=== PATIENT | male | born 1985 | race Hispanic/Latino ===

== ENCOUNTER 2021-08-29 21:42 | Emergency (ER) | payer OTHER ==
[2021-08-29] MEDS ORDERED: ONDANSETRON 4 MG/2 ML INJ IV ONE (23:08)
[2021-08-29] MEDS ORDERED: SODIUM CHLORIDE 0.9% 1000 ML 1,000 ML IV ONE (23:08)
[2021-08-29] MEDS ORDERED: LORazepam 2 MG/ML VIAL IV ONE (23:08)
--- NOTE | 2021-08-29 23:18 | Emergency Department Report ---
ED Seizure HPI - General Chief Complaint: Altered Mental Status Stated Complaint: SEIZURE, OPID WITHDRAW Time Seen by Provider: 08/29/21 22:59 Source: EMS Mode of arrival: Stretcher Limitations: No Limitations - History of Present Illness Initial Comments: 35-year-old male with a past medical history of polysubstance abuse presents from nursing home in police custody after having a witnessed seizure. Patient states he has been incarcerated for last 4 days. He abuses heroin, fentanyl, methamphetamine, and Xanax. Patient uses quite a bit of Xanax daily but has not had any drugs in the last 4 days. He received Narcan 4 mg IM and Versed 5 mg IV prior to ED arrival. He is currently alert and oriented x3 and does denies any pain, history of seizures, or drug use since incarceration. He has noticed to be tremulous. He denies alcohol abuse. Patient is unclear about history of hypertension - Related Data Previous Rx's Medication Instructions Recorded Last Taken Type Nitrofurantoin [place]/M-Cryst 100 mg PO Q12HR #10 capsule 08/30/21 Unknown Rx [Macrobid CAP] Ondansetron [Zofran Odt] 4 mg PO Q8HR PRN #20 tab.rapdis 08/30/21 Unknown Rx Allergies Allergy/AdvReac Type Severity Reaction Status Date / Time No Known Allergies Allergy Unverified 08/29/21 22:15 ED Review of Systems ROS: Stated complaint: SEIZURE, OPID WITHDRAW Other details as noted in HPI Comment: All other systems reviewed and negative ED Past Medical Hx - Past Medical History Previous Medical History?: Yes Hx Hypertension: Yes Hx Psychiatric Treatment: Yes (Bipolar) - Surgical History Past Surgical History?: No - Social History Smoking Status: Unknown if ever smoked Substance Use Type: Methamphetamines, Other - Medications Home Medications: Home Medications Medication Instructions Recorded Confirmed Last Taken Type Nitrofurantoin [place]/M-Cryst 100 mg PO Q12HR #10 capsule 08/30/21 Unknown Rx [Macrobid CAP] Ondansetron [Zofran Odt] 4 mg PO Q8HR PRN #20 tab.rapdis 08/30/21 Unknown Rx ED Physical Exam - General Limitations: No Limitations - Other Other exam information: General: No acute distress Head: Atraumatic Eyes: normal appearance ENT: Moist mucous membranes, no tongue laceration Neck: Normal appearance, no midline tenderness Chest: Clear to auscultation bilaterally CV: Regular rate and rhythm Abdomen: Soft, normal bowel sounds, nontender, nondistended, no rebound or guarding Back: Normal inspection Extremity: Normal inspection, full range of motion Neuro: Alert O x 3, no facial asymmetry, speech clear, no gross motor sensory deficit, tremor noted Psych: Appropriate behavior Skin: Track bhatti to skin ED Course Vital Signs 08/29/21 08/29/21 08/29/21 21:52 22:21 22:24 Temperature 97.5 F L Pulse Rate 87 92 H Respiratory 16 Rate Blood Pressure 184/118 Blood Pressure [Right] O2 Sat by Pulse 98 99 Oximetry 08/29/21 08/29/21 08/30/21 22:49 23:50 00:47 Temperature Pulse Rate 74 98 H 88 Respiratory 16 16 16 Rate Blood Pressure Blood Pressure 170/106 198/117 180/121 [Right] O2 Sat by Pulse 98 97 94 Oximetry 08/30/21 08/30/21 08/30/21 01:01 01:31 02:02 Temperature Pulse Rate 73 77 Respiratory 16 16 Rate Blood Pressure Blood Pressure 144/121 174/87 156/88 [Right] O2 Sat by Pulse 98 98 Oximetry - Reevaluation(s) Reevaluation #1: 08/30/21 04:05 Charge nurse informed to call the nursing home to ensure patient can be admitted to the [facility] for active management of benzo withdrawal 08/30/21 04:49 Charge nurse Francisca spoke to nurse at the nursing home who states that patient will be closely monitored upon discharge - Consultations Consultation #1: 08/30/21 03:[address] Junior optical sales associate regarding mild renal insufficiency and UA findings. Outpatient follow-up recommended. Admission not required at this time due to mild renal insufficiency ED Medical Decision Making - Lab Data Result diagrams: 08/29/21 23:17 08/29/21 23:17 Lab Results 08/29/21 08/29/21 08/29/21 Range/Units 23:17 23:17 23:17 WBC 15.1 H (4.5-11.0) K/mm3 RBC 4.79 (3.65-5.03) M/mm3 Hgb 14.0 (11.8-15.2) gm/dl Hct 41.9 (35.5-45.6) % MCV 88 (84-94) fl MCH 29 (28-32) pg MCHC 33 (32-34) % RDW 13.2 (13.2-15.2) % Plt Count 289 (140-440) K/mm3 Add Manual Diff Complete Total Counted 100 Seg Neutrophils % Psychology Assistant Seg Neuts % (Manual) 82.0 H (40.0-70.0) % Band Neutrophils % 0 % Lymphocytes % (Manual) 12.0 L (13.4-35.0) % Reactive Lymphs % (Man) 0 % Monocytes % (Manual) 6.0 (0.0-7.3) % Eosinophils % (Manual) 0 (0.0-4.3) % Basophils % (Manual) 0 (0.0-1.8) % Metamyelocytes % 0 % Myelocytes % 0 % Promyelocytes % 0 % Blast Cells % 0 % Nucleated RBC % Not Reportable Seg Neutrophils # Man 12.4 H (1.8-7.7) K/mm3 Band Neutrophils # 0.0 K/mm3 Lymphocytes # (Manual) 1.8 (1.2-5.4) K/mm3 Abs React Lymphs (Man) 0.0 K/mm3 Monocytes # (Manual) 0.9 H (0.0-0.8) K/mm3 Eosinophils # (Manual) 0.0 (0.0-0.4) K/mm3 Basophils # (Manual) 0.0 (0.0-0.1) K/mm3 Metamyelocytes # 0.0 K/mm3 Myelocytes # 0.0 K/mm3 Promyelocytes # 0.0 K/mm3 Blast Cells # 0.0 K/mm3 WBC Morphology Not Reportable Hypersegmented Neuts Not Reportable Hyposegmented Neuts Not Reportable Hypogranular Neuts Not Reportable Smudge Cells Not Reportable Toxic Granulation Not Reportable Toxic Vacuolation Not Reportable Dohle Bodies Not Reportable Pelger-Huet Anomaly Not Reportable Nae Rods Not Reportable Platelet Estimate Not Reportable Clumped Platelets Not Reportable Plt Clumps, EDTA Not Reportable Large Platelets Not Reportable Giant Platelets Not Reportable Platelet Satelliting Not Reportable Plt Morphology Comment Not Reportable RBC Morphology Normal Dimorphic RBCs Not Reportable Polychromasia Not Reportable Hypochromasia Not Reportable Poikilocytosis Not Reportable Anisocytosis Not Reportable Microcytosis Not Reportable Macrocytosis Not Reportable Spherocytes Not Reportable Pappenheimer Bodies Not Reportable Sickle Cells Not Reportable Target Cells Not Reportable Tear Drop Cells Not Reportable Ovalocytes Not Reportable Helmet Cells Not Reportable [place] Bodies Not Reportable Cameron Rings Not Reportable Latrice Cells Not Reportable Bite Cells Not Reportable Crenated Cell Not Reportable Elliptocytes Not Reportable Acanthocytes (Spur) Not Reportable Rouleaux Not Reportable Hemoglobin C Crystals Not Reportable Schistocytes Not Reportable Malaria parasites Not Reportable Ezra Bodies Not Reportable Hem Pathologist Commnt No Sodium 138 (137-145) mmol/L Potassium 3.9 (3.6-5.0) mmol/L Chloride 97.7 L (98-107) mmol/L Carbon Dioxide 21 L (22-30) mmol/L Anion Gap 23 mmol/L BUN 34 H (9-20) mg/dL Creatinine 1.9 H (0.8-1.3) mg/dL Estimated GFR 41 ml/min BUN/Creatinine Ratio 18 % Glucose 103 H (75-100) mg/dL Calcium 10.3 H (8.4-10.2) mg/dL Magnesium 2.70 H (1.7-2.3) mg/dL Total Bilirubin 0.60 (0.1-1.2) mg/dL AST 22 (5-40) units/L ALT 9 (7-56) units/L Alkaline Phosphatase 90 (35-129) units/L Total Creatine Kinase (55-170) units/L Total Protein 8.5 H (6.3-8.2) g/dL Albumin 4.4 (3.9-5) g/dL Albumin/Globulin Ratio 1.1 % Urine Color (Yellow) Urine Turbidity (Clear) Urine pH (5.0-7.0) Ur Specific [place] (1.003-1.030) Urine Protein (Negative) mg/dL Urine Glucose (UA) (Negative) mg/dL Urine Ketones (Negative) mg/dL Urine Blood (Negative) Urine Nitrite (Negative) Urine Bilirubin (Negative) Urine Urobilinogen (<2.0) mg/dL Ur Leukocyte Esterase (Negative) Urine WBC (Auto) (0.0-6.0) /HPF Urine RBC (Auto) (0.0-6.0) /HPF U Epithel Cells (Auto) (0-13.0) /HPF Urine Mucus /HPF Salicylates (2.8-20.0) mg/dL Urine Opiates Screen Urine Methadone Screen Acetaminophen (10.0-30.0) ug/mL Ur Barbiturates Screen Ur Phencyclidine Scrn Ur Amphetamines Screen U Benzodiazepines Scrn Urine Cocaine Screen U Marijuana (THC) Screen Drugs of Abuse Note Plasma/Serum Alcohol < 0.01 (0-0.07) % 08/29/21 08/29/21 08/29/21 Range/Units 23:22 23:22 Unknown WBC (4.5-11.0) K/mm3 RBC (3.65-5.03) M/mm3 Hgb (11.8-15.2) gm/dl Hct (35.5-45.6) % MCV (84-94) fl MCH (28-32) pg MCHC (32-34) % RDW (13.2-15.2) % Plt Count (140-440) K/mm3 Add Manual Diff Total Counted Seg Neutrophils % Seg Neuts % (Manual) (40.0-70.0) % Band Neutrophils % % Lymphocytes % (Manual) (13.4-35.0) % Reactive Lymphs % (Man) % Monocytes % (Manual) (0.0-7.3) % Eosinophils % (Manual) (0.0-4.3) % Basophils % (Manual) (0.0-1.8) % Metamyelocytes % % Myelocytes % % Promyelocytes % % Blast Cells % % Nucleated RBC % Seg Neutrophils # Man (1.8-7.7) K/mm3 Band Neutrophils # K/mm3 Lymphocytes # (Manual) (1.2-5.4) K/mm3 Abs React Lymphs (Man) K/mm3 Monocytes # (Manual) (0.0-0.8) K/mm3 Eosinophils # (Manual) (0.0-0.4) K/mm3 Basophils # (Manual) (0.0-0.1) K/mm3 Metamyelocytes # K/mm3 Myelocytes # K/mm3 Promyelocytes # K/mm3 Blast Cells # K/mm3 WBC Morphology Hypersegmented Neuts Hyposegmented Neuts Hypogranular Neuts Smudge Cells Toxic Granulation Toxic Vacuolation Dohle Bodies Pelger-Huet Anomaly Nae Rods Platelet Estimate Clumped Platelets Plt Clumps, EDTA Large Platelets Giant Platelets Platelet Satelliting Plt Morphology Comment RBC Morphology Dimorphic RBCs Polychromasia Hypochromasia Poikilocytosis Anisocytosis Microcytosis Macrocytosis Spherocytes Pappenheimer Bodies Sickle Cells Target Cells Tear Drop Cells Ovalocytes Helmet Cells [place] Bodies Cameron Rings [place] Cells Bite Cells Crenated Cell Elliptocytes Acanthocytes (Spur) Rouleaux Hemoglobin C Crystals Schistocytes Malaria parasites Ezra Bodies Hem Pathologist Commnt Sodium (137-145) mmol/L Potassium (3.6-5.0) mmol/L Chloride (98-107) mmol/L Carbon Dioxide (22-30) mmol/L Anion Gap mmol/L BUN (9-20) mg/dL Creatinine (0.8-1.3) mg/dL Estimated GFR ml/min BUN/Creatinine Ratio % Glucose (75-100) mg/dL Calcium (8.4-10.2) mg/dL Magnesium (1.7-2.3) mg/dL Total Bilirubin (0.1-1.2) mg/dL AST (5-40) units/L ALT (7-56) units/L Alkaline Phosphatase (35-129) units/L Total Creatine Kinase 478 H (55-170) units/L Total Protein (6.3-8.2) g/dL Albumin (3.9-5) g/dL Albumin/Globulin Ratio % Urine Color (Yellow) Urine Turbidity (Clear) Urine pH (5.0-7.0) Ur Specific [place] (1.003-1.030) Urine Protein (Negative) mg/dL Urine Glucose (UA) (Negative) mg/dL Urine Ketones (Negative) mg/dL Urine Blood (Negative) Urine Nitrite (Negative) Urine Bilirubin (Negative) Urine Urobilinogen (<2.0) mg/dL Ur Leukocyte Esterase (Negative) Urine WBC (Auto) (0.0-6.0) /HPF Urine RBC (Auto) (0.0-6.0) /HPF U Epithel Cells (Auto) (0-13.0) /HPF Urine Mucus /HPF Salicylates < 0.3 L (2.8-20.0) mg/dL Urine Opiates Screen Urine Methadone Screen Acetaminophen 5.0 L (10.0-30.0) ug/mL Ur Barbiturates Screen Ur Phencyclidine Scrn Ur Amphetamines Screen U Benzodiazepines Scrn Urine Cocaine Screen U Marijuana (THC) Screen Drugs of Abuse Note Plasma/Serum Alcohol (0-0.07) % 08/30/21 08/30/21 Range/Units 02:15 02:15 WBC (4.5-11.0) K/mm3 RBC (3.65-5.03) M/mm3 Hgb (11.8-15.2) gm/dl Hct (35.5-45.6) % MCV (84-94) fl MCH (28-32) pg MCHC (32-34) % RDW (13.2-15.2) % Plt Count (140-440) K/mm3 Add Manual Diff Total Counted Seg Neutrophils % Seg Neuts % (Manual) (40.0-70.0) % Band Neutrophils % % Lymphocytes % (Manual) (13.4-35.0) % Reactive Lymphs % (Man) % Monocytes % (Manual) (0.0-7.3) % Eosinophils % (Manual) (0.0-4.3) % Basophils % (Manual) (0.0-1.8) % Metamyelocytes % % Myelocytes % % Promyelocytes % % Blast Cells % % Nucleated RBC % Seg Neutrophils # Man (1.8-7.7) K/mm3 Band Neutrophils # K/mm3 Lymphocytes # (Manual) (1.2-5.4) K/mm3 Abs React Lymphs (Man) K/mm3 Monocytes # (Manual) (0.0-0.8) K/mm3 Eosinophils # (Manual) (0.0-0.4) K/mm3 Basophils # (Manual) (0.0-0.1) K/mm3 Metamyelocytes # K/mm3 Myelocytes # K/mm3 Promyelocytes # K/mm3 Blast Cells # K/mm3 WBC Morphology Hypersegmented Neuts Hyposegmented Neuts Hypogranular Neuts Smudge Cells Toxic Granulation Toxic Vacuolation Dohle Bodies Pelger-Huet Anomaly Nae Rods Platelet Estimate Clumped Platelets Plt Clumps, EDTA Large Platelets Giant Platelets Platelet Satelliting Plt Morphology Comment RBC Morphology Dimorphic RBCs Polychromasia Hypochromasia Poikilocytosis Anisocytosis Microcytosis Macrocytosis Spherocytes Pappenheimer Bodies Sickle Cells Target Cells Tear Drop Cells Ovalocytes Helmet Cells [place] Bodies Cameron Rings [place] Cells Bite Cells Crenated Cell Elliptocytes Acanthocytes (Spur) Rouleaux Hemoglobin C Crystals Schistocytes Malaria parasites Ezra Bodies Hem Pathologist Commnt Sodium (137-145) mmol/L Potassium (3.6-5.0) mmol/L Chloride (98-107) mmol/L Carbon Dioxide (22-30) mmol/L Anion Gap mmol/L BUN (9-20) mg/dL Creatinine (0.8-1.3) mg/dL Estimated GFR ml/min BUN/Creatinine Ratio % Glucose (75-100) mg/dL Calcium (8.4-10.2) mg/dL Magnesium (1.7-2.3) mg/dL Total Bilirubin (0.1-1.2) mg/dL AST (5-40) units/L ALT (7-56) units/L Alkaline Phosphatase (35-129) units/L Total Creatine Kinase (55-170) units/L Total Protein (6.3-8.2) g/dL Albumin (3.9-5) g/dL Albumin/Globulin Ratio % Urine Color Judy (Yellow) Urine Turbidity Slightly-cloudy (Clear) Urine pH 5.0 (5.0-7.0) Ur Specific [place] 1.019 (1.003-1.030) Urine Protein >500 (Negative) mg/dL Urine Glucose (UA) Neg (Negative) mg/dL Urine Ketones 20 (Negative) mg/dL Urine Blood Lg (Negative) Urine Nitrite Neg (Negative) Urine Bilirubin Neg (Negative) Urine Urobilinogen < 2.0 (<2.0) mg/dL Ur Leukocyte Esterase Neg (Negative) Urine WBC (Auto) 14.0 H (0.0-6.0) /HPF Urine RBC (Auto) 69.0 (0.0-6.0) /HPF U Epithel Cells (Auto) 1.0 (0-13.0) /HPF Urine Mucus Few /HPF Salicylates (2.8-20.0) mg/dL Urine Opiates Screen Negative Urine Methadone Screen Negative Acetaminophen (10.0-30.0) ug/mL Ur Barbiturates Screen Negative Ur Phencyclidine Scrn Negative Ur Amphetamines Screen Positive U Benzodiazepines Scrn Positive Urine Cocaine Screen Negative U Marijuana (THC) Screen Positive Drugs of Abuse Note Disclamer Plasma/Serum Alcohol (0-0.07) % - EKG Data -: EKG Interpreted by Me (Sinus arrhythmia, atrial premature complex) EKG shows normal: sinus rhythm, intervals (QTC 414), ST-T waves (No STEMI) Rate: normal (68) - Radiology Data Radiology results: report reviewed CT head/brain wo con INDICATION / CLINICAL INFORMATION: new onset seizure hx of drug abuse. TECHNIQUE: Axial CT imaging of the brain was obtained without contrast. Coronal and sagittal reformatted imaging obtained and reviewed. All CT scans at this location are performed using CT dose reduction for ALARA by means of automated exposure control. COMPARISON: None available. FINDINGS: No intracranial hemorrhage, mass, or midline shift is noted. No extra-axial fluid collection or suggestion of acute territorial infarction. Ventricular system and basilar cisterns are unremarkable. There is complete opacification of the right maxillary antrum. 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 There is a small mucous retention cyst within the left maxillary antrum, as well as the left frontal sinus. The remainder of the sinuses are grossly clear. No calvarial abnormality. IMPRESSION: 1. No acute intracranial abnormality. 2. Opacification and deformity of the right maxillary antrum. Differential diagnosis includes hypoplasia versus old trauma of the right maxillary sinus. 3. Incidental finding of small mucous retention cysts within the left maxillary antrum and left frontal sinus. CHEST 1 VIEW INDICATION / CLINICAL INFORMATION: seizure. COMPARISON: None available. FINDINGS: SUPPORT DEVICES: None. HEART / MEDIASTINUM: No significant abnormality. LUNGS / PLEURA: No significant pulmonary or pleural abnormality. No pneumothorax. ADDITIONAL FINDINGS: No significant additional findings. IMPRESSION: 1. No acute findings. - Medical Decision Making 35-year-old female with polysubstance abuse who presented with seizures likely secondary to Xanax withdrawal. Patient presented significantly hypertensive and tremulous and received Narcan and Versed prior to arrival. Patient was treated with 1 mg Ativan with further improvement in symptoms and blood pressure. No signs of rhabdomyolysis. UA findings noted and discussed with Dr. Junior. Outpatient follow-up and continued hydration recommended. Patient did receive 1 L normal saline in the ED. Patient empirically treated with Rocephin azithromycin given UA findings. CT head shows unremarkable brain and incidental sinus findings. Patient will be discharged back to nursing home for further management of his polysubstance abuse withdrawal and Xanax withdrawal. UDS positive for amphetamines, benzos, and marijuana Critical Care Time: No Critical care attestation.: If time is entered above; I have spent that time in minutes in the direct care of this critically ill patient, excluding procedure time. ED Disposition Clinical Impression: Polysubstance abuse, Seizure, Benzodiazepine withdrawal, Dehydration, Renal insufficiency, Urethritis Disposition: HOME / SELF CARE / HOMELESS Is pt being admited?: No Does the pt Need Aspirin: No Condition: Stable Instructions: Acute Kidney Injury, Adult, Substance Use Disorder, Dehydration, Adult, [id number], Benzodiazepine Withdrawal, Urethritis, Adult, Seizure, Robert lt Additional Instructions: Today you had a seizure was suspected to be secondary to benzodiazepine/Xanax withdrawal. You received benzodiazepines in the ED with improvement in your symptoms (tremors and hypertension). Your labs revealed mild impaired kidney function likely secondary to dehydration and substance abuse. You also received antibiotics for possible STD/urine infection. Your substance abuse withdrawal including benzodiazepine withdrawal can be managed by the nursing home. Continue to hydrate with fluids to help with dehydration. Follow-up with the kidney doctor as outpatient for further evaluation Prescriptions: Nitrofurantoin [place]/M-Cryst [Macrobid CAP] 100 mg PO Q12HR #10 capsule Ondansetron [Zofran Odt] 4 mg PO Q8HR PRN #20 tab.rapdis PRN Reason: Nausea And Vomiting Referrals: GIULIA LANZA MD [Primary Care Provider] - 3-5 Days Forms: STI Treatment and Prevention Time of Disposition: 03:50
[2021-08-29 23:41] LABS: Hematocrit 41.9 % (35.5-45.6); Mean Corpuscular HGB Conc 33 % (32-34); Mean Corpuscular Volume 88 fl (84-94); Platelet Count 289 K/mm3 (140-440); Red Blood Count 4.79 M/mm3 (3.65-5.03); Red Cell Distribution Width 13.2 % (13.2-15.2)
[2021-08-30 00:01] LABS: Albumin 4.4 g/dL (3.9-5); Calcium 10.3 mg/dL (8.4-10.2)
--- NOTE | 2021-08-30 00:14 | Cat Scan Report ---
CT head/brain wo con INDICATION / CLINICAL INFORMATION: new onset seizure hx of drug abuse. TECHNIQUE: Axial CT imaging of the brain was obtained without contrast. Coronal and sagittal reformatted imaging obtained and reviewed. All CT scans at this location are performed using CT dose reduction for ALAR A by means of automated exposure control. COMPARISON: None available. FINDINGS: No intracranial hemorrhage, mass, or midline shift is noted. No extra-axial fluid collection or sugge stion of acute territorial infarction. Ventricular system and basilar cisterns are unremarkable. There is complete opacification of the right maxillary antrum. Findings would suggest hypoplasia of t he right maxillary antrum, but old trauma could also give this appearance. There is a small mucous re tention cyst within the left maxillary antrum, as well as the left frontal sinus. The remainder of th e sinuses are grossly clear. No calvarial abnormality. IMPRESSION: 1. No acute intracranial abnormality. 2. Opacification and deformity of the right maxillary antrum. Differential diagnosis includes hypopla tsering versus old trauma of the right maxillary sinus. 3. Incidental finding of small mucous retention cysts within the left maxillary antrum and left front al sinus. Signer Name: Missy Flores MD Signed: 08/30/2021 12:09 AM Workstation Name: [id number]
[2021-08-30] MEDS ORDERED: SODIUM CHLORIDE 0.9% 1000 ML 1,000 ML IV ONE ×2 (00:43→02:46)
[2021-08-30 01:05] LABS: Basophils % (Manual) 0 % (0.0-1.8); Eosinophils % (Manual) 0 % (0.0-4.3); Total Cells Counted 100
[2021-08-30 01:06] LABS: RBC Morphology Normal
[2021-08-30] MEDS ORDERED: hydrALAZINE 20 MG/1 ML INJ IV ONE (01:25)
--- NOTE | 2021-08-30 02:41 | XRay Report ---
CHEST 1 VIEW INDICATION / CLINICAL INFORMATION: seizure. COMPARISON: None available. FINDINGS: SUPPORT DEVICES: None. HEART / MEDIASTINUM: No significant abnormality. LUNGS / PLEURA: No significant pulmonary or pleural abnormality. No pneumothorax. ADDITIONAL FINDINGS: No significant additional findings. IMPRESSION: 1. No acute findings. Signer Name: Missy Flores MD Signed: 08/30/2021 2:37 AM Workstation Name: [id number]
[2021-08-30 02:57] LABS: Bilirubin,Urine NEG (Negative); Blood,Urine LG (Negative); Color,Urine Amber (Yellow); Mucus,Urine FEW /HPF; Urobilinogen,Urine < 2.0 mg/dL (<2.0)
[2021-08-30 02:59] LABS: Protein,Urine >500 mg/dL (Negative)
[2021-08-30 03:01] LABS: Cocaine Screen,Urine Negative; Methadone Screen,Urine Negative; Opiate Screen,Urine Negative
[2021-08-30 03:07] VITALS: BP 156/88
[2021-08-30 03:14] LABS: Amphetamine Screen,Urine Positive; Benzodiazepines Screen,Urine Positive; Cannabinoid Screen,Urine Positive
[2021-08-30] MEDS ORDERED: AZITHROMYCIN 250 MG TAB PO ONE (03:15)
[2021-08-30] MEDS ORDERED: LORazepam 2 MG/ML VIAL IM ONE (04:02)
[2021-08-30] MEDS ORDERED: LIDOCAINE-MPF (1%) 10 MG/1 ML VIAL 5 ML INFILTRATI ONE (04:04)
--- NOTE | 2021-08-31 09:02 | Electrocardiograph Report ---
[facility] Test Date: 2021-08-29 Test Time: 23:12:27 Pat Name: LISSY BORRERO Department: Room: Gender: M Munitions Handler: GRETEL : 1985 Requested By: ALMA MITTAL Order Number: [id number] Reading MD: Adelina Dailey Measurements Intervals [place] Rate: 68 P: 86 CA: 131 QRS: 65 QRSD: 95 T: 98 QT: 390 QTc: 414 Interpretive Statements Sinus arrhythmia Atrial premature complex Possible left ventricle hypertrophy No previous ECG available for comparison Electronically Signed On 08-31-2021 9:02:12 EDT by Adelina Dailey
== END 2021-08-30 05:03 | disposition home or self-care (01) ==
LOC: EEVIPCON 21:42 → ED 21:42
DX: F19.10 Other psychoactive substance abuse, uncomplicated (principal); R56.9 Unspecified convulsions; F13.239 Sedative, hypnotic or anxiolytic dependence with withdrawal, unspecified; E86.0 Dehydration; N28.9 Disorder of kidney and ureter, unspecified; N34.1 Nonspecific urethritis; I10 Essential (primary) hypertension
CPT/HCPCS: 36415; 70450; 71045; 80053; 80307; 81001; 82550; 83735; 85007; 85025; 87086; 93005; 96361; 96372; 96374; 96375; 99285; J0696; J2060; J2405; J3490; J7030; 80320; Q0162; G0480